=== PATIENT | male | born 1955 | race Caucasian/White ===

== ENCOUNTER 2017-11-24 15:42 | Emergency (ER) | payer OTHER ==
[~2017-11-24] VITALS: Ht 167.6 cm; Wt 67.6 kg
[~2017-11-24 15:42] MED LIST: ASPIR-LOW81 MG PO; BUTALB-ACETAMI1 EACH PO; CLOPIDOGREL BIS75 MG PO; COZAAR100 MG PO; GABAPENTIN800 MG PO; HYDROCHLOROTHIA25 MG PO; MECLIZINE HCL12.5 MG PO; OMEPRAZOLE20 MG PO; TRAMADOL HCL50 MG PO; [UNRECOGNIZED DRUG - OTHER] PO
== END 2017-11-25 10:24 | disposition home or self-care (01) ==
LOC: ER 15:42
DX: K40.91 Unilateral inguinal hernia, without obstruction or gangrene, recurrent (principal)

== ENCOUNTER 2018-02-25 10:22 | Outpatient (CLI) | payer OTHER | END 2018-02-25 10:31 | disposition home or self-care (01) | LOC: RAD 10:22 → EDBD 10:22 → LAB 10:22 → RAD 10:31 | DX: K40.91 Unilateral inguinal hernia, without obstruction or gangrene, recurrent (principal); Z01.818 Encounter for other preprocedural examination ==

== ENCOUNTER 2018-03-23 05:55 | Day surgery (SDC) | payer OTHER ==
[2018-03-23] MEDS ORDERED: ULTRACET PO (14:46)
[2018-03-23] MEDS ORDERED: POLY119PG PO (14:46)
== END 2018-03-23 17:40 | disposition home or self-care (01) ==
LOC: EDBD → CIR.AMB 05:55
DX: K40.91 Unilateral inguinal hernia, without obstruction or gangrene, recurrent (principal)